=== PATIENT | female | born 1965 ===

== ENCOUNTER 2020-11-05 09:49 | Emergency (ER) | payer OTHER ==
[~2020-11-05] VITALS: Ht 157.5 cm; Wt 104.3 kg
[~2020-11-05 09:49] MED LIST: ESCI10 PO; FEMCON PO; LEVSOD100 PO; METF500 PO
[2020-11-05 10:44] LABS: BASOPHILS ABSOLUTE AUTO 0.02 K/mm3 (0.00-0.23); BASOPHILS PERCENT AUTO 0 % (0-2); EOSINOPHILS ABSOLUTE AUTO 0.06 K/mm3 (0.00-0.68); EOSINOPHILS PERCENT AUTO 1 % (0-6); Hematocrit 40.1 % (33.0-51.0); Hemoglobin 13.6 g/dL (11.5-16.0); IMMATURE GRAN ABSOLUTE AUTO 0.06 K/mm3 (0.00-0.10); IMMATURE GRAN PERCENT AUTO 1 % (0-1); LYMPHOCYTES ABSOLUTE AUTO 2.09 K/mm3 (0.84-5.20); LYMPHOCYTES PERCENT AUTO 19 % (21-46); MONOCYTES ABSOLUTE AUTO 0.87 K/mm3 (0.16-1.47); MONOCYTES PERCENT AUTO 8 % (4-13); Mean Corpuscular HGB 28.7 pg (26.0-34.0); Mean Corpuscular HGB Conc 33.9 g/dL (31.5-36.5); Mean Corpuscular Volume 85 fL (80-100); Mean Platelet Volume 9.8 fL (9.1-12.4); NEUTROPHILS ABSOLUTE AUTO 7.92 K/mm3 (1.96-9.15); NEUTROPHILS PERCENT AUTO 72 % (41-73); Platelet Count 274 K/mm3 (150-400); RDW Coefficient Variation 13.1 % (11.7-14.2); RDW Standard Deviation 40.3 fL (35.1-46.3); Red Blood Cell Count 4.74 M/mm3 (3.80-5.20); White Blood Cell Count 11.02 K/mm3 (4.00-11.30)
[2020-11-05 10:45] LABS: Alanine Aminotransfer (ALT/SGP 18 U/L (12-78); Albumin, Blood 3.4 g/dL (3.4-5.0); Albumin/Globulin Ratio 0.7 (0.8-1.8); Alk Phos 123 U/L (50-136); Anion Gap 10 mmol/L (6-16); Aspartate Aminotrans (AST/SGOT 10 U/L (12-37); Bilirubin, Total 1.1 mg/dL (0.1-1.0); Blood Urea Nitrogen 8 mg/dL (8-24); Bun/Creatinine Ratio 16.8 (12.0-20.0); CO2, Blood 22 mmol/L (21-32); Calcium, Blood 8.8 mg/dL (8.5-10.1); Chloride, Blood 104 mmol/L (98-108); Creatinine, Blood 0.48 mg/dL (0.40-1.00); Globulin, Blood 4.8 g/dL (2.2-4.0); Glomerular Filtration Rate >60 (60-); Glucose, Blood 299 mg/dL (70-99); Potassium, Blood 3.8 mmol/L (3.5-5.5); Sodium, Blood 136 mmol/L (136-145); Total Protein, Blood 8.2 g/dL (6.4-8.2)
[2020-11-05] MEDS ORDERED: CEPH500 PO (13:39)
[2020-11-05] MEDS ORDERED: Norco 5-325 Ta1 EACH PO (13:39)
== END 2020-11-05 14:40 | disposition home or self-care (01) ==
LOC: ER 09:49
PROVIDERS: Physician Assistant
DX: L03.115 Cellulitis of right lower limb (principal)
CPT/HCPCS: 10061; 36415; 73620; 76882; 80053; 85025; 87070; 87075; 87077; 87147; 87186; 87205; 96365-59; 96375-59; 99284-25; J0696; J2405; J3010; J7030

== ENCOUNTER 2020-11-09 11:17 | Inpatient (IN) | payer OTHER ==
[~2020-11-09] VITALS: Ht 160 cm; Wt 104.3 kg
[~2020-11-09 11:17] MED LIST changes: +CEPH500 PO; +Norco 5-325 Ta1 EACH PO
[2020-11-09 12:35] LABS: BASOPHILS ABSOLUTE AUTO 0.03 K/mm3 (0.00-0.23); BASOPHILS PERCENT AUTO 0 % (0-2); EOSINOPHILS ABSOLUTE AUTO 0.07 K/mm3 (0.00-0.68); EOSINOPHILS PERCENT AUTO 1 % (0-6); Hematocrit 38.1 % (33.0-51.0); Hemoglobin 12.9 g/dL (11.5-16.0); IMMATURE GRAN ABSOLUTE AUTO 0.12 K/mm3 (0.00-0.10); IMMATURE GRAN PERCENT AUTO 1 % (0-1); LYMPHOCYTES ABSOLUTE AUTO 1.92 K/mm3 (0.84-5.20); LYMPHOCYTES PERCENT AUTO 16 % (21-46); MONOCYTES ABSOLUTE AUTO 0.81 K/mm3 (0.16-1.47); MONOCYTES PERCENT AUTO 7 % (4-13); Mean Corpuscular HGB 28.5 pg (26.0-34.0); Mean Corpuscular HGB Conc 33.9 g/dL (31.5-36.5); Mean Corpuscular Volume 84 fL (80-100); Mean Platelet Volume 9.6 fL (9.1-12.4); NEUTROPHILS ABSOLUTE AUTO 8.82 K/mm3 (1.96-9.15); NEUTROPHILS PERCENT AUTO 75 % (41-73); Platelet Count 322 K/mm3 (150-400); RDW Coefficient Variation 12.9 % (11.7-14.2); Red Blood Cell Count 4.53 M/mm3 (3.80-5.20); White Blood Cell Count 11.77 K/mm3 (4.00-11.30)
[2020-11-09 12:53] LABS: Alanine Aminotransfer (ALT/SGP 12 U/L (12-78); Albumin, Blood 3.1 g/dL (3.4-5.0); Albumin/Globulin Ratio 0.6 (0.8-1.8); Alk Phos 117 U/L (50-136); Anion Gap 11 mmol/L (6-16); Aspartate Aminotrans (AST/SGOT 8 U/L (12-37); Bilirubin, Total 0.6 mg/dL (0.1-1.0); Blood Urea Nitrogen 9 mg/dL (8-24); Bun/Creatinine Ratio 20.7 (12.0-20.0); CO2, Blood 23 mmol/L (21-32); Calcium, Blood 8.8 mg/dL (8.5-10.1); Chloride, Blood 103 mmol/L (98-108); Creatinine, Blood 0.43 mg/dL (0.40-1.00); Globulin, Blood 5.1 g/dL (2.2-4.0); Glomerular Filtration Rate >60 (60-); Glucose, Blood 264 mg/dL (70-99); Potassium, Blood 2.9 mmol/L (3.5-5.5); Sodium, Blood 137 mmol/L (136-145); Total Protein, Blood 8.2 g/dL (6.4-8.2)
--- NOTE | 2020-11-09 15:23 | NUR ---
ARRIVAL TO UNIT PT ARRIVED AT 1445, SHE WAS ABLE TO STAND AND PIVOT TO BED FROM A WHEELCHAIR. SHE REPORTS PAIN 10/10 IN R FOOT, THE FOOT IS VISIBLY SWOLLEN WITH A SMALL BLACK PUNCTURE WOUND ON THE PLANTAR SURFACE OF THE FOOT. REDNESS RADIATES FROM THE PUNCTURE WOUND MEDIALLY UP TO THE ANKLE. WARM TO TOUCH. PULSE PALPABLE, DENIES N/T. PT HAS BEEN NPO SINCE 0800 THIS MORNING WITH SOME WATER. HAS NOT EATEN SINCE LAST NIGHT 11/08/20. CURRENTLY K-RIDER IS INFUSING IN LEFT AC IV. PLAN IS FOR POSSIBE SURGERY TODAY. PT ORIENTED TO UNIT, CALL LIGHT IS IN REACH.
--- NOTE | 2020-11-09 17:21 | NUR ---
SHIFT SUMMARY AA0X4, R FOOT REMAINS ELEVATED ON PILLOWS, PT REPORTS MUCH BETTER FEELING SINCE ABLE TO KEEP ELEVATED. IV ABX AND POTASSIUM GOING PER ORDERS. POTASSIUM INFUSING SLOWLY FOR PATIENT COMFORT. SURGERY POSTPONED UNTIL TOMORROW R/T K+ OF 2.9. PT AWARE, PT WILL BE NPO AT MIDNIGHT FOR PROCEDURE TOMORROW.
--- NOTE | 2020-11-10 04:39 | NUR ---
SHIFT SUMMARY: PT A&O X4. VS WNL. RIGHT FOOT SWOLLEN, RED AND WARM TO TOUCH. STRONG PULSE, CAP REFILL WNL. PT ABLE TO WIGGLE TOES. C/O SEVERE THROBBING PAIN. NEW ORDER FOR TORADOL WHICH WAS EFFECTIVE. PT ALSO BEING MEDICATED WITH ORAL PAIN MEDS. IV POTASSIUM COMPLETE. IVF INFUSING PER EMAR. PLAN TO RECHECK LABS THIS MORNING AND FOR OR TODAY FOR WASHOUT. PT HAS BEEN NPO SINCE MIDNIGHT.
[2020-11-10 06:05] LABS: Hematocrit 31.7 % (33.0-51.0); Hemoglobin 10.9 g/dL (11.5-16.0); Mean Corpuscular HGB Conc 34.4 g/dL (31.5-36.5); Mean Corpuscular Volume 84 fL (80-100); Mean Platelet Volume 9.1 fL (9.1-12.4); Platelet Count 275 K/mm3 (150-400); RDW Standard Deviation 39.2 fL (35.1-46.3); Red Blood Cell Count 3.76 M/mm3 (3.80-5.20); White Blood Cell Count 8.05 K/mm3 (4.00-11.30)
[2020-11-10 06:19] LABS: Anion Gap 8 mmol/L (6-16); Blood Urea Nitrogen 10 mg/dL (8-24); Bun/Creatinine Ratio 18.7 (12.0-20.0); CO2, Blood 24 mmol/L (21-32); Calcium, Blood 8.1 mg/dL (8.5-10.1); Chloride, Blood 108 mmol/L (98-108); Creatinine, Blood 0.53 mg/dL (0.40-1.00); Glomerular Filtration Rate >60 (60-); Glucose, Blood 266 mg/dL (70-99); Potassium, Blood 3.3 mmol/L (3.5-5.5); Sodium, Blood 140 mmol/L (136-145)
--- NOTE | 2020-11-10 17:07 | NUR ---
PATIENT LEFT FOR OR AT 1640 TODAY.
--- NOTE | 2020-11-10 17:19 | NUR ---
PT NECKLACE TO ROOM 208 AND PLACED IN PURSE
--- NOTE | 2020-11-10 17:52 | NUR ---
11/10/20 1752 Perlita Garvin PT ON SCHEDULED ANTIBIOTICS
--- NOTE | 2020-11-10 18:45 | NUR ---
PATIENT CAME BACK FROM PACU TODAY 11/10/20 AT 1840. POD 0 I&D OF RIGHT FOOT PATIENT IS ALERT AND ORIENTED X4. VS ARE WNL AND IS ON RA. PATIENT DENIES PAIN AT THIS TIME. RIGHT FOOT HAS GAUZE AND JOYA WRAP FOR BANDAGES. IT IS C/D/I. PATIENT HAS NUMBNESS TO THE RIGHT FOOT BUT NOT THE LEFT. SHE IS ABLE TO WIGGLE FINGERS AND TOES WHEN ASKED. SHE WAS ABLE TO STAND AND PIVOT FROM THE PACU BED TO THE ROOM BED. SHE IS TOLERATING HER PO FLUIDS AND IS TRYING SOME CRACKERS. CALL LIGHT WITHIN REACH. DR. LEGER WILL CHANGE PACKING TOMORROW.
[2020-11-11 04:54] LABS: BASOPHILS ABSOLUTE AUTO 0.03 K/mm3 (0.00-0.23); BASOPHILS PERCENT AUTO 0 % (0-2); EOSINOPHILS PERCENT AUTO 0 % (0-6); IMMATURE GRAN ABSOLUTE AUTO 0.16 K/mm3 (0.00-0.10); IMMATURE GRAN PERCENT AUTO 2 % (0-1); LYMPHOCYTES PERCENT AUTO 10 % (21-46); MONOCYTES ABSOLUTE AUTO 0.29 K/mm3 (0.16-1.47); MONOCYTES PERCENT AUTO 3 % (4-13); Mean Corpuscular HGB 28.4 pg (26.0-34.0); Mean Corpuscular HGB Conc 33.3 g/dL (31.5-36.5); Mean Corpuscular Volume 85 fL (80-100); Mean Platelet Volume 9.4 fL (9.1-12.4); NEUTROPHILS ABSOLUTE AUTO 8.51 K/mm3 (1.96-9.15); NEUTROPHILS PERCENT AUTO 85 % (41-73); Platelet Count 274 K/mm3 (150-400); RDW Coefficient Variation 12.8 % (11.7-14.2); RDW Standard Deviation 39.1 fL (35.1-46.3); Red Blood Cell Count 4.23 M/mm3 (3.80-5.20); White Blood Cell Count 9.99 K/mm3 (4.00-11.30)
[2020-11-11 05:17] LABS: Albumin, Blood 2.6 g/dL (3.4-5.0); Anion Gap 11 mmol/L (6-16); Blood Urea Nitrogen 12 mg/dL (8-24); Bun/Creatinine Ratio 25.5 (12.0-20.0); CO2, Blood 17 mmol/L (21-32); Calcium, Blood 8.4 mg/dL (8.5-10.1); Chloride, Blood 108 mmol/L (98-108); Creatinine, Blood 0.47 mg/dL (0.40-1.00); Glomerular Filtration Rate >60 (60-); Glucose, Blood 293 mg/dL (70-99); Phosphorus, Blood 3.5 mg/dL (2.5-4.9); Potassium, Blood 4.3 mmol/L (3.5-5.5); Sodium, Blood 136 mmol/L (136-145)
--- NOTE | 2020-11-11 06:24 | NUR ---
POD 1 S/P I&D OF R FOOT. BP ELEVATED EARLY IN SHIFT, PT ASYMPTOMATIC; BP WNL THIS AM. DRESSING CDI, RLE ELEVATED IN BED. PT REP SENSATION RETURNING THIS AM, PAIN MGD W/TORADOL W/REP RELIEF. +BLOOD CX (GRAM VARIABLE BACILLI) REC, NO CHANGES IN ABX ORDERS. PT UP OOB W/FWW+SBA, MAINTAINING NWB STATUS.
--- NOTE | 2020-11-11 17:52 | NUR ---
DR LEGER IN AND COMPLETED DRESSING CHANGE TO RIGHT FOOT. PT REPORTS PAIN IS ADEQUATELY CONTROLLED. ALEKSANDRA PO FOOD AND FLUIDS, ONE EPISODE NAUSEA RESOLVED WITH ZOFRAN. BILATERAL FEET PINK, WARM WITH CAPILLARY REFILL LESS THAN 3 SEC. PT IS HOPEFUL FOR DISCHARGE IN THE MORNING AND STATES SHE HAS [employer] HOME ASSISTANCE AND ALL NECESSARY EQUIPMENT.
--- NOTE | 2020-11-12 05:30 | NUR ---
POD 2 S/P I&D OF RIGHT FOOT. PT VSS T/O NIGHT. OUTER DRESSING CDI; SMALL AMT SS DRNG NOTED ON INNER DRESSING. PT DENIED CHANGES IN SENSATION. PAIN MGD PER EMAR W/REP RELIEF. PT UP OOB W/FWW+SBA, MAINTAINING NWB ON RLE; ALEKSANDRA WELL. IV ABX CONT PER ORDERS. PLAN TO D/C HOME TODAY.
--- NOTE | 2020-11-12 07:26 | NUR ---
PT TEARFUL REPORTING 10/10 PAIN TO R FOOT. STATING SCD CAUSING INCREASED PAIN. REMOVED SCD TO RLE AND NOC RN MEDICATED PER ORDERS FOR PAIN. CALL LIGHT IN REACH.
--- NOTE | 2020-11-12 11:26 | NUR ---
PT REPORTS HAS WALKER, BATHCHAIR.
--- NOTE | 2020-11-12 13:41 | NUR ---
therapy working w/pt.
[2020-11-12] MEDS ORDERED: IBUP400 PO (14:43)
[2020-11-12] MEDS ORDERED: VISBIOME 112.51 EACH PO (14:44)
[2020-11-12] MEDS ORDERED: Percocet 5-3251 EACH PO (15:26)
--- NOTE | 2020-11-12 16:11 | NUR ---
discharged DC'D IV, CATHETER INTACT. REVIEWED DC INSTRUCTIONS, PT VERBALIZED UNDERSTANDING. CALLED PRESCRIPTIONS INTO [facility] PER PT REQUEST. PT LEFT UNIT IN WC W/POSSESSIONS AND DC PAPERWORK ACCOMPANIED BY SPOUSE.
== END 2020-11-12 16:14 | disposition home or self-care (01) | DRG 580 ==
LOC: ER 11:17 → MEDS 11:18 → SURS 11:18
PROVIDERS: Emergency Medicine; Family Medicine; Nurse Practitioner Acute Care; Podiatrist Foot & Ankle Surgery; ADMIT Internal Medicine
PROC: 0J9Q0ZZ Drainage of Right Foot Subcutaneous Tissue and Fascia, Open Approach (ICD-10-PCS; principal; 2020-11-10 16:30)
PROC: 0HCMXZZ Extirpation of Matter from Right Foot Skin, External Approach (ICD-10-PCS; 2020-11-10 16:30)
DX: L03.115 Cellulitis of right lower limb (principal); R78.81 Bacteremia; L02.611 Cutaneous abscess of right foot; Z68.41 Body mass index [BMI] 40.0-44.9, adult; R73.03 Prediabetes; E87.6 Hypokalemia; E66.01 Morbid (severe) obesity due to excess calories; D64.9 Anemia, unspecified; B95.61 Methicillin susceptible Staphylococcus aureus infection as the cause of diseases classified elsewhere; Z87.891 Personal history of nicotine dependence; Z18.33 Retained wood fragments
CPT/HCPCS: 36415; 80048; 80053; 80069; 83036; 83605; 85025; 85027; 87040; 96365; 96367; 96375; 96376; 97110; 97116; 97161; 99284-25; A9270; G0378; J0690; J1100; J1885; J2001; J2250; J2405; J2543; J2704; J3010; J3480; J7030; J7120

== ENCOUNTER → 2022-05-16 | Outpatient (CLI) | payer OTHER ==
[~2022-05-16] MED LIST changes: +IBUP400 PO; +Percocet 5-3251 EACH PO; +VISBIOME 112.51 EACH PO
== END | disposition home or self-care (01) ==
LOC: LAB HH 11:10
DX: L02.215 Cutaneous abscess of perineum (principal)
CPT/HCPCS: 87070; 87077; 87147; 87186; 87205

== ENCOUNTER → 2022-05-29 | Outpatient (CLI) | payer OTHER | END | disposition home or self-care (01) | LOC: LAB SHORT 11:00 → LAB 11:00 | DX: L02.215 Cutaneous abscess of perineum (principal); L03.315 Cellulitis of perineum; M72.2 Plantar fascial fibromatosis | CPT/HCPCS: 87070; 87075; 87205 ==

== ENCOUNTER 2022-07-21 02:19 | Day surgery (SDC) | payer OTHER | END 2022-07-21 22:49 | disposition home or self-care (01) | LOC: WOUND 02:19 | DX: T81.89XA Other complications of procedures, not elsewhere classified, initial encounter (principal); E11.622 Type 2 diabetes mellitus with other skin ulcer; L02.215 Cutaneous abscess of perineum; N76.4 Abscess of vulva; M72.6 Necrotizing fasciitis; L03.315 Cellulitis of perineum; I10 Essential (primary) hypertension | CPT/HCPCS: A9270; G0463 ==

== ENCOUNTER 2022-08-04 01:57 | Day surgery (SDC) | payer OTHER | END 2022-08-04 22:45 | disposition home or self-care (01) | LOC: WOUND 01:57 | DX: T81.41XA Infection following a procedure, superficial incisional surgical site, initial encounter (principal); L02.215 Cutaneous abscess of perineum; N76.4 Abscess of vulva; L03.115 Cellulitis of right lower limb; M72.6 Necrotizing fasciitis; I10 Essential (primary) hypertension; E11.622 Type 2 diabetes mellitus with other skin ulcer | CPT/HCPCS: G0463 ==

== ENCOUNTER 2022-08-18 00:56 | Day surgery (SDC) | payer OTHER | END 2022-08-18 22:54 | disposition home or self-care (01) | LOC: WOUND 00:56 | DX: N76.4 Abscess of vulva (principal); L03.315 Cellulitis of perineum; L02.215 Cutaneous abscess of perineum; M72.6 Necrotizing fasciitis; I10 Essential (primary) hypertension; E11.622 Type 2 diabetes mellitus with other skin ulcer | CPT/HCPCS: G0463 ==

== ENCOUNTER 2022-08-28 08:00 | Day surgery (SDC) | payer OTHER | END 2022-08-28 23:59 | disposition home or self-care (01) | LOC: WOUND 08:00 | DX: M72.6 Necrotizing fasciitis (principal); L02.215 Cutaneous abscess of perineum; N76.4 Abscess of vulva; L03.315 Cellulitis of perineum; E11.622 Type 2 diabetes mellitus with other skin ulcer; I10 Essential (primary) hypertension | CPT/HCPCS: G0463 ==

== ENCOUNTER → 2023-10-29 | Outpatient (CLI) | payer OTHER | END | disposition home or self-care (01) | LOC: LAB 08:21 → LAB SHORT 08:21 | DX: E03.9 Hypothyroidism, unspecified (principal) | CPT/HCPCS: 84443 ==